=== PATIENT | female | born 1975 | race Caucasian/White ===

== ENCOUNTER → 2016-05-20 | Outpatient (CLI) | payer MEDICAID ==
[~2016-05-20] MED LIST: ALLERGY SERUM SUB-Q; ASPIRIN325 MG PO; LIPITOR40 MG PO; NORCO 5-325 MG1 TAB PO; SEROQUEL50 MG PO; ZETIA10 MG PO
== END | disposition disaster alternative care site (69) ==
LOC: LNHI 16:52
DX: E78.5 Hyperlipidemia, unspecified (principal); R60.9 Edema, unspecified; Q21.1 Atrial septal defect

== ENCOUNTER → 2016-08-30 | Outpatient (CLI) | payer MEDICAID | END | disposition disaster alternative care site (69) | LOC: GRAD 14:00 | DX: M25.561 Pain in right knee (principal); S86.811A Strain of other muscle(s) and tendon(s) at lower leg level, right leg, initial encounter; X58.XXXA Exposure to other specified factors, initial encounter ==

== ENCOUNTER → 2016-11-16 | Outpatient (CLI) | payer MEDICAID | LOC: GRAD 07:57 | DX: M25.511 Pain in right shoulder (principal) ==